=== PATIENT | male | born 2000 | race Caucasian/White ===

== ENCOUNTER 2018-10-25 00:09 | Emergency (ER) | payer SELFPAY ==
[~2018-10-25] VITALS: Ht 198.1 cm; Wt 54.4 kg
--- NOTE | 2018-10-25 00:09 | NUR ---
PT [facility]. TAKEN TO BED 5
[2018-10-25 00:13] VITALS: BP 116/83
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
--- NOTE | 2018-10-25 00:39 | NUR ---
Dr. Ma examining patient.
--- NOTE | 2018-10-25 01:05 | NUR ---
PT TO CT SCAN VIA WHEELCHAIR.
--- NOTE | 2018-10-25 01:19 | NUR ---
PT RETURN FROM CT
--- NOTE | 2018-10-25 01:42 | NUR ---
[place] [facility] AT BEDSIDE
[2018-10-25] MEDS ORDERED: CLINDAMYCIN 600 MG/4 ML VIAL IM ONE (01:50)
--- NOTE | 2018-10-25 02:40 | NUR ---
Patient discharged with v/s stable. Written and verbal after care instructions given and explained. Patient alert, oriented and verbalized understanding of instructions. Ambulatory with steady gait. All questions addressed prior to discharge. ID band removed. Patient advised to follow up with PMD. Rx of CLINDAMYSIN, MOTRIN given. Patient educated on indication of medication including possible reaction and side effects. Opportunity to ask questions provided and answered. PAIN IS TOLERABLE STATED BY PT. DECREASED SWELLING TO FACE.
[2018-10-25 02:45] VITALS: BP 105/61
== END 2018-10-25 02:40 | disposition home or self-care (01) ==
LOC: MED 00:09
DX: S02.32XA Fracture of orbital floor, left side, initial encounter for closed fracture (principal); S02.40DA Maxillary fracture, left side, initial encounter for closed fracture; S02.40FA Zygomatic fracture, left side, initial encounter for closed fracture; S00.512A Abrasion of oral cavity, initial encounter; Y08.09XA Assault by strike by other specified type of sport equipment, initial encounter; Y93.89 Activity, other specified; Y92.89 Other specified places as the place of occurrence of the external cause; Y99.8 Other external cause status
CPT/HCPCS: 70486; 99284; J3490